=== PATIENT | female | born 1985 | race Caucasian/White ===

== ENCOUNTER 2019-03-28 12:20 | Emergency (ER) | payer OTHER ==
[2019-03-28] MEDS: CEFTRIAXONE 250 MG INJ IM (13:24)
[2019-03-28] MEDS: LIDOCAINE 1% (MDV) 20 ML INJ SC (13:24)
== END 2019-03-28 14:12 | disposition home or self-care (01) ==
LOC: FTE 12:20
DX: L02.415 Cutaneous abscess of right lower limb (principal)
CPT/HCPCS: 96372; 99284-25